=== PATIENT | male | born 1975 | race Caucasian/White ===

== ENCOUNTER 2018-12-15 06:20 | Day surgery (SDC) | payer BC, OTHER ==
[2018-12-15] MEDS ORDERED: ceFAZolin 2 GM in Premix Bag 1 BAG IV SCH (07:00)
[2018-12-15] MEDS ORDERED: Lactated Ringers 1,000 ML IV SCH ×2 (07:00→09:30)
[2018-12-15] MEDS ORDERED: Midazolam 1 MG/ML 2 ML SDV ONE (07:10)
[2018-12-15] MEDS ORDERED: fentaNYL 100 MCG/2 ML SDV ONE (07:11)
[2018-12-15] MEDS ORDERED: Lidocaine 2% 100 MG/5 ML Syringe ONE (07:12)
[2018-12-15] MEDS ORDERED: Propofol 200 MG/20 ML SDV ONE (07:16)
[2018-12-15] MEDS ORDERED: Rocuronium 10 MG/ML 10 ML Syringe ONE (07:16)
--- NOTE | 2018-12-15 07:22 | PCM.PREANE ---
Preanesthetic Assessment - Anesthesia/Transfusion/Family Hx Anesthesia History: Prior Anesthesia Without Reaction Family History of Anesthesia Reaction: No Transfusion History: No Prior Transfusion(s) Intubation History: Unknown - Review of Systems General: No Symptoms Pulmonary: No Symptoms Cardiovascular: No Symptoms Gastrointestinal: No Symptoms Neurological: No Symptoms Other: Reports: None - Physical Assessment Height: 1.83 m Weight: 124.738 kg ASA Class: 2 Mental Status: Alert & Oriented x3 Airway Class: Mallampati = 2 Dentition: Reports: Normal Dentition Thyro-Mental Finger Breadths: 3 Mouth Opening Finger Breadths: 3 ROM/Head Extension: Full Lungs: Clear to Auscultation, Normal Respiratory Effort Cardiovascular: Regular Rate, Regular Rhythm - Allergies Allergies/Adverse Reactions: Allergies Allergy/AdvReac Type Severity Reaction Status Date / Time egg Allergy Anaphylactic Verified 12/12/18 10:09 Shock - Blood Blood Available: No - Anesthesia Plan Pre-Op Medication Ordered: None - Acknowledgements Anesthesia Type Planned: General Anesthesia Pt an Appropriate Candidate for the Planned Anesthesia: Yes Alternatives and Risks of Anesthesia Discussed w Pt/Guardian: Yes Pt/Guardian Understands and Agrees with Anesthesia Plan: Yes PreAnesthesia Questionnaire HEENT History: Reports: Other (See Below) Other HEENT History: wears glasses/contacts Cardiovascular History: Reports: Hypertension, Other (See Below) (borderline cholesterol) Respiratory History: Reports: Sleep Apnea Other Respiratory History: uses CPAP Psychiatric History: Reports: Anxiety Endocrine/Metabolic History: Reports: Obesity/BMI 30+ - Past Surgical History Head Surgeries/Procedures: Reports: None HEENT Surgical History: Reports: Adenoidectomy, Naso-Sinus Surgery (x2), Tonsillectomy - SUBSTANCE USE Smoking Status *Q: Never Smoker Recreational Drug Use History: No - HOME MEDS Home Medications: Home Meds Losartan/Hydrochlorothiazide [Hyzaar 50-12.5 Tablet] 1 tab PO DAILY 12/12/18 [ History] - CURRENT (IN HOUSE) MEDS Current Meds: Current Medications Cefazolin Sodium/Dextrose 2 gm (/ Premix) 50 mls @ 100 mls/hr IV ONETIME HODAN Lactated Ringer's (Ringers, Lactated) 1,000 mls @ 125 mls/hr IV ASDIRECTED HODAN Last Admin: 12/15/18 07:09 Dose: 125 mls/hr Discontinued Medications Fentanyl (Sublimaze) Confirm Administered Dose 100 mcg .ROUTE .STK-MED ONE Stop: 12/15/18 07:12 Lidocaine HCl (Xylocaine 2%) Confirm Administered Dose 100 mg .ROUTE .STK-MED ONE Stop: 12/15/18 07:13 Midazolam HCl (Versed 1 Mg/Ml) Confirm Administered Dose 2 mg .ROUTE .STK-MED ONE Stop: 12/15/18 07:11 Propofol (Diprivan 20 Ml) Confirm Administered Dose 200 mg .ROUTE .STK-MED ONE Stop: 12/15/18 07:17 Rocuronium [place] (Zemuron) Confirm Administered Dose 100 mg .ROUTE .STK-MED ONE Stop: 12/15/18 07:17
[2018-12-15] MEDS ORDERED: Bupivacaine 0.5% 10 ML SDV ONE (07:24)
[2018-12-15] MEDS ORDERED: ceFAZolin 1 GM Vial ONE (07:24)
[2018-12-15] MEDS ORDERED: Dexamethasone 4 MG/ML 5 ML MDV ONE (08:13)
[2018-12-15] MEDS ORDERED: Ondansetron 4 MG/2 ML SDV ONE (08:15)
[2018-12-15] MEDS ORDERED: ceFAZolin/Dextrose,Iso-Osmotic 2 GM/50 ML Duplex Bag IV ONE (08:24)
[2018-12-15] MEDS ORDERED: Glycopyrrolate 0.2 MG/ML SDV ONE ×2 (08:33→08:43)
[2018-12-15] MEDS ORDERED: Ketorolac 30 MG/ML SDV ONE (08:41)
[2018-12-15] MEDS ORDERED: Sugammadex Sodium 200 MG/2 ML VIAL ONE (08:42)
[2018-12-15] MEDS ORDERED: Neostigmine Methylsulfate 1 MG/ML 5 ML Syringe ONE (08:44)
[2018-12-15] MEDS ORDERED: Ondansetron 4 MG/2 ML SDV IVPUSH PRN (09:22)
[2018-12-15] MEDS ORDERED: Acetaminophen/HYDROcodone 325-5 MG Tab PO PRN (09:22)
[2018-12-15] MEDS ORDERED: Morphine 10 MG/ML Syringe IVPUSH PRN (09:22)
--- NOTE | 2018-12-15 09:32 | PCM.OPNOTE ---
- General Post-Op/Procedure Note Date of Surgery/Procedure: 12/15/18 Operative Procedure(s): Repair incarcerated umbilical hernia with Dulex mesh Pre Op Diagnosis: Incarcerated umbilical hernia Post-Op Diagnosis: Same Anesthesia Technique: General ET Tube (ASA II) Primary Surgeon: Shahab Butt Chip Crusher Operator: Juan Pablo Suarez Condition: Good Free Text/Narrative:: DICTATION [id number] CPT CODE/[id number]
[2018-12-15] MEDS ORDERED: HYDROmorphone 2 MG/ML SDV IVPUSH ONE (09:34)
[2018-12-15] MEDS: fentaNYL 100 MCG/2 ML SDV IVPUSH PRN ×2 (09:47→09:53)
--- NOTE | 2018-12-15 10:05 | PCM.POSTAN ---
POST ANESTHESIA ASSESSMENT - MENTAL STATUS Mental Status: Alert, Oriented - RESPIRATORY Respiratory Status: Respiratory Rate WNL, Airway Patent, O2 Saturation Stable - CARDIOVASCULAR CV Status: Pulse Rate WNL, Blood Pressure Stable - GASTROINTESTINAL GI Status: No Symptoms - PAIN Pain Score: 3 - POST OP HYDRATION Hydration Status: Adequate & Stable - OBSERVATIONS Free Text/Narrative:: no anesthesia problems
--- NOTE | 2018-12-15 12:04 | OR ---
SURGEON: Shahab Butt M.D. DATE OF PROCEDURE: 12/15/2018 OPERATION PERFORMED: Repair of incarcerated umbilical hernia with Dulex mesh. TEAROOM HOST/HOSTESS: ЕКАТЕРИНА Ross student. ANESTHESIA: General endotracheal ASA CLASSIFICATION: II. PREOPERATIVE DIAGNOSIS: Incarcerated umbilical hernia. POSTOPERATIVE DIAGNOSIS: Incarcerated umbilical hernia. ESTIMATED BLOOD LOSS: 5 mL. INTRAOPERATIVE FLUID REPLACEMENT: 1500 mL of crystalloid. DESCRIPTION OF PROCEDURE: The patient was taken to the operating room and placed on the operating table in the supine position. Time-out was called for appropriate identification of the patient and procedure. Thigh-high TEDs and sequential compression boots were placed. Following satisfactory attainment of general endotracheal anesthesia, the abdomen was prepped with DuraPrep solution. Sterile drapes were applied. The skin incision had been marked out skirting to the right around the umbilicus. This was now infiltrated with 10 mL of 0.5% Marcaine solution. The skin incision was made and deepened through the subcutaneous tissue obtaining hemostasis with the use of electrocautery. Dissection was carried down to the hernia defect, which was circumferentially dissected free. The defect was approximately 3 x 5 cm in size. It was elected to place mesh. Initially, an attempt was made to place a Ventralex mesh, but this would not lay flat. Therefore Dulex mesh was brought to the operating table and cut to appropriate size. This was then soaked in 1% Ancef solution and secured in an underlay fashion with multiple interrupted horizontal mattress 0 Ethibond sutures. All sutures were placed under direct vision and held with hemostats until the final suture had been placed. Once that was accomplished, sutures were tied. The patient was given Valsalva maneuver to 40 cm of water and the repair was solid. The wound was inspected for hemostasis and no significant bleeding was noted. The fascia was then reapproximated over the mesh to allow for further closure between the mesh and the outside environment. The wound was irrigated with 1% Ancef solution. Subcutaneous tissue was reapproximated with 3-0 Vicryl, and the skin edges were reapproximated with subcuticular Monocryl, reinforced with Steri- Strips. Sterile Tegaderm pad was placed as a dressing. Sponge, needle, and instrument counts were all correct. Following emergence from anesthesia and extubation, the patient was taken to recovery room in satisfactory condition. ANDEWTRUDI / MODL /[id number]
== END 2018-12-15 11:23 | disposition home or self-care (01) ==
LOC: MW.SDS 06:20
PROVIDERS: ATTEND Surgery
DX: K42.0 Umbilical hernia with obstruction, without gangrene (principal); I10 Essential (primary) hypertension; E78.00 Pure hypercholesterolemia, unspecified; G47.33 Obstructive sleep apnea (adult) (pediatric); Z99.89 Dependence on other enabling machines and devices; F41.8 Other specified anxiety disorders; E66.9 Obesity, unspecified; Z68.37 Body mass index [BMI] 37.0-37.9, adult; Z91.012 Allergy to eggs; Z79.899 Other long term (current) drug therapy; Z87.891 Personal history of nicotine dependence
CPT/HCPCS: 49587; J0690; J1100; J1885; J2001; J2250; J2405; J2704; J3010; J3490; J7120; C1781